=== PATIENT | female | born 1945 | race Caucasian/White ===

== ENCOUNTER 2016-09-26 09:24 | Day surgery (SDC) | payer MEDICARE, BC ==
[~2016-09-26 09:24] MED LIST: Cefuroxime 10 MG/ML SYRINGE EYERT SCH; Lidocaine 1% PF 2 ML SDV INJECT SCH; Pilocarpine 4% Ophth Soln 15 ML Bot EYERT SCH; Polymyxin B/Trimethoprim 10 ML Bottle EYERT SCH
[2016-09-26] MEDS: Ofloxacin 0.3% Ophth Soln 5 ML Bottle EYERT SCH ×3 (10:33→12:28)
[2016-09-26] MEDS: Brimonidine 0.2% Ophth Soln 5 ML Bottle EYERT SCH ×3 (10:38→12:28)
--- NOTE | 2016-09-26 10:39 | PCM.PREANE ---
Preanesthetic Assessment - Anesthesia/Transfusion/Family Hx Anesthesia History: Prior Anesthesia Without Reaction Family History of Anesthesia Reaction: No - Review of Systems General: No Symptoms Pulmonary: No Symptoms Cardiovascular: No Symptoms Gastrointestinal: No symptoms Neurological: No Symptoms Other: Reports: None - Physical Assessment NPO Status Date: 09/26/16 NPO Status Time: 02:00 Pulse: 56 O2 Sat by Pulse Oximetry: 96 Respiratory Rate: 16 Blood Pressure: 124/72 ASA Class: 2 Mental Status: Alert & Oriented x3 Airway Class: Mallampati = 2 Dentition: Reports: Normal Dentition Thyro-Mental Finger Breadths: 3 Mouth Opening Finger Breadths: 3 ROM/Head Extension: Full Lungs: Clear to auscultation, Normal respiratory effort Cardiovascular: Regular Rate, Regular Rhythm - Allergies Allergies/Adverse Reactions: Allergies Allergy/AdvReac Type Severity Reaction Status Date / Time adhesive Allergy Cannot Verified 09/25/16 15:11 Remember Sulfa (Sulfonamide Allergy Cannot Verified 09/25/16 15:11 Antibiotics) Remember powdered gloves Allergy Cannot Uncoded 09/25/16 15:11 Remember - Anesthesia Plan Beta Luigi: Atenolol Med Last Dose Date: 09/26/16 Med Last Dose Time: 05:30 - Acknowledgements Anesthesia Type Planned: MAC Pt an Appropriate Candidate for the Planned Anesthesia: Yes Alternatives and Risks of Anesthesia Discussed w Pt/Guardian: Yes Pt/Guardian Understands and Agrees with Anesthesia Plan: Yes PreAnesthesia Questionnaire HEENT History: Reports: None Cardiovascular History: Reports: None, Hypertension Respiratory History: Reports: SOB (SOB with exertion) Gastrointestinal History: Reports: None Genitourinary History: Reports: None Musculoskeletal History: Reports: Arthritis Neurological History: Reports: None Psychiatric History: Reports: None Endocrine/Metabolic History: Reports: Hypothyroidism Hematologic History: Reports: None Immunologic History: Reports: None Oncologic (Cancer) History: Reports: None Dermatologic History: Reports: None - Past Surgical History Head Surgeries/Procedures: Reports: None HEENT Surgical History: Reports: None Cardiovascular Surgical History: Reports: None Respiratory Surgical History: Reports: None GI Surgical History: Reports: Cholecystectomy Female Surgical History: Reports: Hysterectomy Male Surgical History: Reports: None Endocrine Surgical History: Reports: None Neurological Surgical History: Reports: None Musculoskeletal Surgical History: Reports: None Oncologic Surgical History: Reports: None Dermatological Surgical History: Reports: None - SUBSTANCE USE Smoking Status *Q: Never Smoker - HOME MEDS Home Medications: Home Meds Aspirin 81 mg PO DAILY 09/25/16 [History] Atenolol/Chlorthalidone [Tenoretic 50] 1 tab PO DAILY 09/25/16 [History] Calcium Carbonate [Calcium] 600 mg PO DAILY 09/25/16 [History] Lutein 40 mg PO DAILY 09/25/16 [History] Meloxicam [Meloxicam] 15 mg PO DAILY 09/25/16 [History] Pantoprazole Sodium [Protonix] 40 mg PO DAILY 09/25/16 [History] Potassium 99 mg PO DAILY 09/25/16 [History] Solifenacin Succinate [Vesicare] 5 mg PO DAILY 09/25/16 [History] - CURRENT (IN HOUSE) MEDS Current Meds: Current Medications Brimonidine Tartrate (Alphagan 0.2% Ophth Soln) 0 ml EYERT ASDIRECTED DORA Stop: 09/26/16 16:00 Cefuroxime Sodium (Zinacef) 0 mg EYERT ASDIRECTED DORA Stop: 09/26/16 18:00 Lidocaine HCl (Xylocaine-Mpf 1%) 10 ml INJECT ASDIRECTED DORA Stop: 09/26/16 18:00 Ofloxacin (Ocuflox 0.3% Ophth Soln) 0 ml EYERT ASDIRECTED DORA Stop: 09/26/16 16:00 Phenylephrine HCl (Rowdy-Synephrine 2.5% Ophth Soln) 0 ml EYERT ASDIRECTED DORA Stop: 09/26/16 16:00 Pilocarpine HCl (Pilocar 4% Ophth Soln) 0 ml EYERT ASDIRECTED DORA Stop: 09/26/16 16:00 Tetracaine HCl (Tetracaine 0.5% Steri-Unit Thania) 0 ml EYERT ASDIRECTED DORA Stop: 09/26/16 16:00 Tropicamide (Mydriacyl 1% Ophth Soln) 0 ml EYERT ASDIRECTED DORA Stop: 09/26/16 16:00
[2016-09-26] MEDS: Phenylephrine 2.5% Ophth Soln 2 ML Bot EYERT SCH ×5 (10:42→12:09)
[2016-09-26] MEDS: Tetracaine HCl/PF 0.5% 4 ML Bottle EYERT SCH ×2 (12:00→12:16)
[2016-09-26 12:56] VITALS: BP 130/70
--- NOTE | 2016-09-26 12:57 | PCM48HPAN ---
Post Anesthesia Note - EVALUATION WITHIN 48HRS OF ANESTHETIC Vital Signs in Normal Range: Yes Patient Participated in Evaluation: Yes Respiratory Function Stable: Yes Airway Patent: Yes Cardiovascular Function Stable: Yes Hydration Status Stable: Yes Pain Control Satisfactory: Yes Nausea and Vomiting Control Satisfactory: Yes Mental Status Recovered: Yes
== END 2016-09-26 12:40 | disposition home or self-care (01) ==
LOC: JD.SDS 09:24
PROVIDERS: ATTEND Ophthalmology
DX: H26.9 Unspecified cataract (principal); I10 Essential (primary) hypertension; E03.9 Hypothyroidism, unspecified; Z88.2 Allergy status to sulfonamides; Z91.09 Other allergy status, other than to drugs and biological substances; Z90.49 Acquired absence of other specified parts of digestive tract; Z98.890 Other specified postprocedural states; Z96.659 Presence of unspecified artificial knee joint; Z79.82 Long term (current) use of aspirin; Z79.899 Other long term (current) drug therapy
CPT/HCPCS: 66984; C1780; J0697; A9270-GY

== ENCOUNTER 2016-11-02 08:56 | Day surgery (SDC) | payer MEDICARE, BC ==
[~2016-11-02 08:56] MED LIST changes: +Cefuroxime 10 MG/ML SYRINGE EYELF SCH; -Cefuroxime 10 MG/ML SYRINGE EYERT SCH; +Pilocarpine 4% Ophth Soln 15 ML Bot EYELF SCH; -Pilocarpine 4% Ophth Soln 15 ML Bot EYERT SCH; -Polymyxin B/Trimethoprim 10 ML Bottle EYERT SCH
[2016-11-02] MEDS: Ofloxacin 0.3% Ophth Soln 5 ML Bottle EYELF SCH ×3 (11:06→12:56)
[2016-11-02] MEDS: Brimonidine 0.2% Ophth Soln 5 ML Bottle EYELF SCH ×3 (11:11→12:56)
[2016-11-02] MEDS: Phenylephrine 2.5% Ophth Soln 2 ML Bot EYELF SCH ×5 (11:16→12:37)
--- NOTE | 2016-11-02 11:27 | PCM.PREANE ---
Preanesthetic Assessment - Anesthesia/Transfusion/Family Hx Anesthesia History: Prior Anesthesia Without Reaction Family History of Anesthesia Reaction: No Transfusion History: No Prior Transfusion(s) Intubation History: Unknown - Review of Systems General: No Symptoms Pulmonary: No Symptoms Cardiovascular: No Symptoms Gastrointestinal: No Symptoms Neurological: No Symptoms Other: Reports: None - Physical Assessment NPO Status Date: 11/02/16 NPO Status Time: 05:30 Pulse: 56 O2 Sat by Pulse Oximetry: 98 Respiratory Rate: 16 Blood Pressure: 137/67 Temperature: 97.4 C Vital Signs: Last Vital Signs Temp 36.3 C 11/02/16 10:55 Pulse 56 L 11/02/16 10:55 Resp 16 11/02/16 10:55 BP 137/67 11/02/16 10:55 Pulse Ox 98 11/02/16 10:55 Height: 1.68 m Weight: 97.522 kg ASA Class: 2 Mental Status: Alert & Oriented x3 Airway Class: Mallampati = 2 Dentition: Reports: Dentures (upper) Thyro-Mental Finger Breadths: 2 Mouth Opening Finger Breadths: 3 ROM/Head Extension: Full Lungs: Clear to Auscultation, Normal Respiratory Effort Cardiovascular: Regular Rate, Regular Rhythm - Allergies Allergies/Adverse Reactions: Allergies Allergy/AdvReac Type Severity Reaction Status Date / Time adhesive Allergy Cannot Verified 11/01/16 11:36 Remember Sulfa (Sulfonamide Allergy Cannot Verified 11/01/16 11:36 Antibiotics) Remember powdered gloves Allergy Cannot Uncoded 09/25/16 15:11 Remember - Anesthesia Plan Beta Luigi: Atenolol Med Last Dose Date: 11/02/16 Med Last Dose Time: 05:30 - Acknowledgements Anesthesia Type Planned: MAC Pt an Appropriate Candidate for the Planned Anesthesia: Yes Alternatives and Risks of Anesthesia Discussed w Pt/Guardian: Yes Pt/Guardian Understands and Agrees with Anesthesia Plan: Yes PreAnesthesia Questionnaire HEENT History: Reports: None, Cataract Cardiovascular History: Reports: None, Hypertension Respiratory History: Reports: SOB (SOB with exertion) Gastrointestinal History: Reports: None Genitourinary History: Reports: None Musculoskeletal History: Reports: Arthritis Neurological History: Reports: None Psychiatric History: Reports: None Endocrine/Metabolic History: Reports: Hypothyroidism Hematologic History: Reports: None Immunologic History: Reports: None Oncologic (Cancer) History: Reports: None Dermatologic History: Reports: None - Past Surgical History Head Surgeries/Procedures: Reports: None HEENT Surgical History: Reports: None Cardiovascular Surgical History: Reports: None Respiratory Surgical History: Reports: None GI Surgical History: Reports: Cholecystectomy Female Surgical History: Reports: Hysterectomy Male Surgical History: Reports: None Endocrine Surgical History: Reports: None Neurological Surgical History: Reports: None Musculoskeletal Surgical History: Reports: None Oncologic Surgical History: Reports: None Dermatological Surgical History: Reports: None - SUBSTANCE USE Smoking Status *Q: Never Smoker - HOME MEDS Home Medications: Home Meds Aspirin 81 mg PO DAILY 09/25/16 [History] Atenolol/Chlorthalidone [Tenoretic 50] 1 tab PO DAILY 09/25/16 [History] Calcium Carbonate [Calcium] 600 mg PO DAILY 09/25/16 [History] Lutein 40 mg PO DAILY 09/25/16 [History] Meloxicam [Meloxicam] 15 mg PO DAILY 09/25/16 [History] Pantoprazole Sodium [Protonix] 40 mg PO DAILY 09/25/16 [History] Potassium 99 mg PO DAILY 09/25/16 [History] Solifenacin Succinate [Vesicare] 5 mg PO DAILY 09/25/16 [History] - CURRENT (IN HOUSE) MEDS Current Meds: Current Medications Brimonidine Tartrate (Alphagan 0.2% Ophth Soln) 0 ml EYELF ASDIRECTED DORA Stop: 11/02/16 18:00 Last Admin: 11/02/16 11:11 Dose: 1 drop Cefuroxime Sodium (Zinacef) 0 mg EYELF ASDIRECTED DORA Stop: 11/02/16 18:00 Lidocaine HCl (Xylocaine-Mpf 1%) 10 ml INJECT ASDIRECTED DORA Stop: 11/02/16 18:00 Ofloxacin (Ocuflox 0.3% Ophth Soln) 0 ml EYELF ASDIRECTED DORA Stop: 11/02/16 18:00 Last Admin: 11/02/16 11:06 Dose: 1 drop Phenylephrine HCl (Rowdy-Synephrine 2.5% Ophth Soln) 0 ml EYELF ASDIRECTED DORA Stop: 11/02/16 18:00 Last Admin: 11/02/16 11:16 Dose: 1 drop Pilocarpine HCl (Pilocar 4% Ophth Soln) 0 ml EYELF ASDIRECTED DORA Stop: 11/02/16 18:00 Tetracaine HCl (Tetracaine 0.5% Steri-Unit Thania) 0 ml EYELF ASDIRECTED DORA Stop: 11/02/16 18:00 Tropicamide (Mydriacyl 1% Ophth Soln) 0 ml EYERT ASDIRECTED DORA Stop: 11/02/16 18:00 Last Admin: 11/02/16 11:21 Dose: 1 drop
[2016-11-02] MEDS: Tetracaine HCl/PF 0.5% 4 ML Bottle EYELF SCH ×2 (12:27→12:44)
[2016-11-02 13:18] VITALS: BP 145/68
== END 2016-11-02 13:08 | disposition home or self-care (01) ==
LOC: JD.SDS 08:56
PROVIDERS: ATTEND Ophthalmology
DX: H25.812 Combined forms of age-related cataract, left eye (principal); H02.831 Dermatochalasis of right upper eyelid; H02.834 Dermatochalasis of left upper eyelid; I10 Essential (primary) hypertension; M19.90 Unspecified osteoarthritis, unspecified site; E03.9 Hypothyroidism, unspecified; Z88.2 Allergy status to sulfonamides; Z91.048 Other nonmedicinal substance allergy status; Z79.82 Long term (current) use of aspirin; Z79.899 Other long term (current) drug therapy; Z96.659 Presence of unspecified artificial knee joint; Z90.49 Acquired absence of other specified parts of digestive tract; Z90.710 Acquired absence of both cervix and uterus; Z98.41 Cataract extraction status, right eye; Z96.1 Presence of intraocular lens
CPT/HCPCS: 66984; A9270; J0697; V2632